=== PATIENT | female | born 1960 | race Caucasian/White ===

== ENCOUNTER 2017-02-20 21:41 | Emergency (ER) | payer OTHER ==
[~2017-02-20 21:41] MED LIST: FISH OIL1000 M1 PO; GABAPENTIN300 MG PO; HYDROXYZINE HCL25 MG PO; LISINOPRIL10 MG PO; MULTIPLE VITAMIN PO; VITAMIN B12100 MCG PO; VITAMIN D PO
--- NOTE | 2017-02-20 23:00 | ED ORDER SUMMARY ---
..... Patient: DALTON DORAN OrderSheet [facility] VisitID: [id number] [address] [place] [address] 56y, F Registration Date/Time: 02/20/2017 ORDER SHEET Weight: 81.6 kg (stated) Allergies: Cyclobenzaprine GENERAL ORDERS: MEDICATION ORDERS: Tylenol PO 650 mg (NOW) (22:48 02/20/2017 Yohannes Weinberg) ([facility] 22:52 Jewelss R.N.) (22:56 Jewelss R.N.) IV FLUIDS: ORDER SHEET NOTES: [Electronically signed by Brisa Lopez P.A.-C (23:10 02/20/2017)] [Electronically signed by Daxa Maldonado R.N. (23:15 02/20/2017)] [Electronically locked/signed by Daxa Maldonado R.N. (23:15 02/20/2017)]
--- NOTE | 2017-02-20 23:00 | ED ORDER SUMMARY ---
..... Patient: DALTON DORAN OrderSheet [facility] VisitID: [id number] [address] [place] [address] 56y, F Registration Date/Time: 02/20/2017 ORDER SHEET Weight: 81.6 kg (stated) Allergies: Cyclobenzaprine GENERAL ORDERS: MEDICATION ORDERS: Tylenol PO 650 mg (NOW) (22:48 02/20/2017 Yohannes Weinberg) ([facility] 22:52 Jewelss R.N.) (22:56 Jewelss R.N.) IV FLUIDS: ORDER SHEET NOTES: [Electronically signed by Brisa Lopez P.A.-C (23:10 02/20/2017)] [Electronically signed by Daxa Maldonado R.N. (23:15 02/20/2017)] [Electronically locked/signed by Daxa Maldonado R.N. (23:15 02/20/2017)]
--- NOTE | 2017-02-20 23:00 | ED CLINICAL REPORT ---
Clinical Report - Physicians/Mid Levels [facility] [address] [place] [address] 02/20/2017 21:42 [facility]: [id number] Time Seen: 23:05 Feb 20 2017. Arrived- By private vehicle. Historian- patient. HISTORY OF PRESENT ILLNESS Chief Complaint: (R. Foot pain x 1 year). The injury happened 1 month, ongoing for 12 month. Patient is experiencing mild pain. Patient denies injury to the head or neck. (Patient has been referred for little tearing right foot pain over the last 12 months, has seen PT, undergoing treatment, pain worsening x 1 month. No trauma. NO rash. Worse with movement.). REVIEW OF SYSTEMS The patient complains of pain on weight bearing. All systems otherwise negative, except as recorded above. PAST HISTORY The patient has not had a prior injury to the same area. SOCIAL HISTORY Never smoker. No alcohol use or drug use. ADDITIONAL NOTES The nursing notes have been reviewed. PHYSICAL EXAM Vital Signs: 02/20/2017 21:48 BP: 150/80. HR: 80. RR: 18. O2 saturation: 95%. Temp: 98.3 F. Pain level now: 10/10. Appearance: Alert. Head: Head atraumatic. Eyes: Pupils equal, round and reactive to light. Eyes normal inspection. No scleral icterus or pale conjunctivae. ENT: Ears normal. Nose normal. Neck: Normal inspection. Neck supple. CVS: Normal heart rate and rhythm. Heart sounds normal. No cardiac murmur or extra heart sounds. Respiratory: No respiratory distress. Breath sounds normal. No chest wall injury. Abdomen: No visible injury. Soft. Bowel sounds normal. No organomegaly. No mass. No abdominal tenderness. The bowel sounds are not abnormal. Skin: Skin intact. Skin warm. Extremities: Base of the right 5th metatarsal. Right foot, plantar aspect. No tenderness or laceration. Right heel. (distal heel tenderness, no swelling, no rash, no abrasion/ no cellulitis.). No ankle injury. Neuro, Vascular and Tendons: Vascular status intact. Motor intact. Gait: No limping gait. Neuro: Oriented X 3. PROGRESS AND PROCEDURES Course of Care: Patient here in the emergency department with with signs of acute on chronic pain, currently receiving physical therapy for such, pain worsens with movement and activity. No signs of underlying abrasion. No signs of cellulitis. No signs of any trauma or injury. Patient with full range of motion. NO signs of Achilles injury. Pt explained in detail that due to chronic concerns, this is something that needs to be managed outpatient, and follow up with podiatry/ pcp. No acute nature of her pain, likely exacerbation of chronic. good distal ns, no signs of abrasion/ erythema. 02/20/2017 21:48 BP: 150/80. HR: 80. RR: 18. O2 saturation: 95%. Temp: 98.3 F. Pain level now: 05/16. Patient is stable. Symptoms better. Patient/family counseled. Disposition: Discharged. Condition: good. CLINICAL IMPRESSION Sprain of the right foot. INSTRUCTIONS Prescription Medications: Hydrocodone/APAP 5mg / 325mg: take 1 orally every 6 hours as needed for pain. Dispense five (5). No refill. OTC Medications: Take OTC medications according to label instructions. Available over the counter. Acetaminophen (available over the counter): take according to label instructions. Motrin (available over the counter): take according to label instructions. Follow-up: Follow up with your doctor in three days. Follow-up with: Thee Robertson DPM, Podiatry, , [facility], [address] [place] [address], [address], [place] [address] Follow up. Call for the next available appointment. (Electronically signed by Brisa Lopez P.A.-C 02/20/2017 23:10)
--- NOTE | 2017-02-20 23:00 | ED CLINICAL REPORT ---
Clinical Report - Physicians/Mid Levels [facility] [address] [place] [address] 02/20/2017 21:42 [id number] Time Seen: 23:05 Feb 20 2017. Arrived- By private vehicle. Historian- patient. HISTORY OF PRESENT ILLNESS Chief Complaint: (R. Foot pain x 1 year). The injury happened 1 month, ongoing for 12 month. Patient is experiencing mild pain. Patient denies injury to the head or neck. (Patient has been referred for little tearing right foot pain over the last 12 months, has seen PT, undergoing treatment, pain worsening x 1 month. No trauma. NO rash. Worse with movement.). REVIEW OF SYSTEMS The patient complains of pain on weight bearing. All systems otherwise negative, except as recorded above. PAST HISTORY The patient has not had a prior injury to the same area. SOCIAL HISTORY Never smoker. No alcohol use or drug use. ADDITIONAL NOTES The nursing notes have been reviewed. PHYSICAL EXAM Vital Signs: 02/20/2017 21:48 BP: 150/80. HR: 80. RR: 18. O2 saturation: 95%. Temp: 98.3 F. Pain level now: 10/10. Appearance: Alert. Head: Head atraumatic. Eyes: Pupils equal, round and reactive to light. Eyes normal inspection. No scleral icterus or pale conjunctivae. ENT: Ears normal. Nose normal. Neck: Normal inspection. Neck supple. CVS: Normal heart rate and rhythm. Heart sounds normal. No cardiac murmur or extra heart sounds. Respiratory: No respiratory distress. Breath sounds normal. No chest wall injury. Abdomen: No visible injury. Soft. Bowel sounds normal. No organomegaly. No mass. No abdominal tenderness. The bowel sounds are not abnormal. Skin: Skin intact. Skin warm. Extremities: Base of the right 5th metatarsal. Right foot, plantar aspect. No tenderness or laceration. Right heel. (distal heel tenderness, no swelling, no rash, no abrasion/ no cellulitis.). No ankle injury. Neuro, Vascular and Tendons: Vascular status intact. Motor intact. Gait: No limping gait. Neuro: Oriented X 3. PROGRESS AND PROCEDURES Course of Care: Patient here in the emergency department with with signs of acute on chronic pain, currently receiving physical therapy for such, pain worsens with movement and activity. No signs of underlying abrasion. No signs of cellulitis. No signs of any trauma or injury. Patient with full range of motion. NO signs of Achilles injury. Pt explained in detail that due to chronic concerns, this is something that needs to be managed outpatient, and follow up with podiatry/ pcp. No acute nature of her pain, likely exacerbation of chronic. good distal ns, no signs of abrasion/ erythema. 02/20/2017 21:48 BP: 150/80. HR: 80. RR: 18. O2 saturation: 95%. Temp: 98.3 F. Pain level now: 05/16. Patient is stable. Symptoms better. Patient/family counseled. Disposition: Discharged. Condition: good. CLINICAL IMPRESSION Sprain of the right foot. INSTRUCTIONS Prescription Medications: Hydrocodone/APAP 5mg / 325mg: take 1 orally every 6 hours as needed for pain. Dispense five (5). No refill. OTC Medications: Take OTC medications according to label instructions. Available over the counter. Acetaminophen (available over the counter): take according to label instructions. Motrin (available over the counter): take according to label instructions. Follow-up: Follow up with your doctor in three days. Follow-up with: Thee Robertson DPM, Podiatry, , [facility], [address] [place] [address], [address], [place] [address] Follow up. Call for the next available appointment. (Electronically signed by Brisa Lopez P.A.-C 02/20/2017 23:10)
--- NOTE | 2017-02-20 23:00 | ED NURSING NOTES ---
Clinical Report - Nurses [facility] [address] [place] [address] 02/20/2017 21:42 Patient: DALTON DORAN TRIAGE Triage time 21:48 Feb 20 2017. Acuity: LEVEL 4. Chief Complaint: RIGHT LOWER EXTREMITY PAIN. Location of symptoms- (sharp pain with activity, usually happens at night). 21:56 02/20/17. SEPSIS SCREEN: Sepsis Screen. Negative (no infection suspected/documented). ARNOLDO COMA SCORE: Arnoldo Coma Scale: 15- eyes open spontaneously (4); best verbal response- oriented x 4 (5); best motor response- obeys commands (6). --21:56 Destinee Dowell 21:48 02/20/17. BP: 150/80 (regular adult cuff) taken on the left arm, while sitting. HR: 80. RR: 18. O2 saturation: 95% on room air. Temp: 98.3 F (oral). Pain level now: 05/16. --21:56 Destinee Dowell. Weight: 81.6 kg stated. Height/Length: 60 inches Per Patient. BMI: 35.1. --21:58 Destinee Dowell. Medications Calcium + D3 Oral, am. Gabapentin Oral 300 mg am and noon, and 600mg at hs . HydrOXYzine HCl Oral 50 mg, at bedtime. Lisinopril 10mg am. --21:52 Destinee Dowell. Allergies Cyclobenzaprine. --21:53 Destinee Dowell. History Arrived by private vehicle. Historian: patient. Primary physician (Dr Cobian). No injury occurred. This occurred (pain has been over a year but pain has increased in a month). ( Patient has not had an injury, she has had xrays over a year ago she says and she has had PT for this). 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 PAST MEDICAL HX: Immunizations: up-to-date. SOCIAL HX: Never smoker. No alcohol use or drug use. No infectious disease exposure. ABUSE ASSESSMENT: No report of abuse. SELF HARM ASSESSMENT: A self harm assessment was performed. The patient answered "no" to the question "Do you have thoughts of harming or killing yourself?" and "Have you recently had thoughts about harming or killing others?". --21:56 Destinee Dowell. PROBLEMS: Atypical Chest Pain. Costochondritis. Herpes Zoster. Herpes Labialis. Hypertension. Cholesterol problems. --21:53 Destinee Dowell. ADDITIONAL SURGERIES: Ganglion cyst . Tonsillectomy. Warts. --21:53 Destinee Dowell. Interventions ID band on patient. To treatment room. --21:56 Destinee Dowell. PHYSICAL ASSESSMENT 21:58 02/20/17. Ambulatory to room. GENERAL / NEURO / PSYCH: Oriented X 4. Alert. Appears in no acute distress. EXTREMITIES: Extremity pulses are within normal limits. Extremities exhibit normal ROM. Neuro-vascular status intact to the extremity. No lower extremity edema. Normal gait. Right medial ankle. Right heel. SKIN: Skin intact. Skin is warm and dry. --21:58 Destinee Dowell. NURSING PROGRESS NOTES 21:58 02/20/17. The plan of care for this patient has been created. Cold pack applied. Extremity elevated. Reassurance given. Two patient identifiers checked. Call light placed in reach. Side rails up x 1. Bed placed in lowest position. Brakes of bed on. Patient ready for evaluation- chart flagged and ED physician notified. --21:58 Destinee Dowell 22:56 02/20/2017 Tylenol (Acetaminophen) PO Tablets 650 mg given. Allergies verified and confirmed 5 rights. --22:56 Cristina Olivier R.N. DISPOSITION / DISCHARGE Condition at departure: stable. No learning barriers present. Discharge instructions provided and reviewed with the patient. Reviewed medication(s) side effects, precautions, dosing and course information. Prescription(s) given to the patient. Follow up contact number. Patient verbalized understanding. Written instructions provided in Sri [place]ankan. The patient was discharged home. She left the Emergency Department ambulatory and via private vehicle. --23:15 Daxa Maldonado R.N. 23:14 02/20/17. BP: 158/86. HR: 71. RR: 16. O2 saturation: 99% on room air. Temp: deferred. Phelps-Mendoza pain scale: 4/10. --23:15 Daxa Maldonado R.N. Locked/Released at 02/20/2017 23:15 by Daxa Maldonado R.N.
--- NOTE | 2017-02-20 23:00 | ED NURSING NOTES ---
Clinical Report - Nurses [facility] [address] [place] [address] 02/20/2017 21:42 Patient: DALTON DORAN TRIAGE Triage time 21:48 Feb 20 2017. Acuity: LEVEL 4. Chief Complaint: RIGHT LOWER EXTREMITY PAIN. Location of symptoms- (sharp pain with activity, usually happens at night). 21:56 02/20/17. SEPSIS SCREEN: Sepsis Screen. Negative (no infection suspected/documented). ARNOLDO COMA SCORE: Arnoldo Coma Scale: 15- eyes open spontaneously (4); best verbal response- oriented x 4 (5); best motor response- obeys commands (6). --21:56 Destinee Dowell 21:48 02/20/17. BP: 150/80 (regular adult cuff) taken on the left arm, while sitting. HR: 80. RR: 18. O2 saturation: 95% on room air. Temp: 98.3 F (oral). Pain level now: 05/16. --21:56 Destinee Dowell. Weight: 81.6 kg stated. Height/Length: 60 inches Per Patient. BMI: 35.1. --21:58 Destinee Dowell. Medications Calcium + D3 Oral, am. Gabapentin Oral 300 mg am and noon, and 600mg at hs . HydrOXYzine HCl Oral 50 mg, at bedtime. Lisinopril 10mg am. --21:52 Destinee Dowell. Allergies Cyclobenzaprine. --21:53 Destinee Dowell. History Arrived by private vehicle. Historian: patient. Primary physician (Dr Cobian). No injury occurred. This occurred (pain has been over a year but pain has increased in a month). ( Patient has not had an injury, she has had xrays over a year ago she says and she has had PT for this). 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 PAST MEDICAL HX: Immunizations: up-to-date. SOCIAL HX: Never smoker. No alcohol use or drug use. No infectious disease exposure. ABUSE ASSESSMENT: No report of abuse. SELF HARM ASSESSMENT: A self harm assessment was performed. The patient answered "no" to the question "Do you have thoughts of harming or killing yourself?" and "Have you recently had thoughts about harming or killing others?". --21:56 Destinee Dowell. PROBLEMS: Atypical Chest Pain. Costochondritis. Herpes Zoster. Herpes Labialis. Hypertension. Cholesterol problems. --21:53 Destinee Dowell. ADDITIONAL SURGERIES: Ganglion cyst . Tonsillectomy. Warts. --21:53 Destinee Dowell. Interventions ID band on patient. To treatment room. --21:56 Destinee Dowell. PHYSICAL ASSESSMENT 21:58 02/20/17. Ambulatory to room. GENERAL / NEURO / PSYCH: Oriented X 4. Alert. Appears in no acute distress. EXTREMITIES: Extremity pulses are within normal limits. Extremities exhibit normal ROM. Neuro-vascular status intact to the extremity. No lower extremity edema. Normal gait. Right medial ankle. Right heel. SKIN: Skin intact. Skin is warm and dry. --21:58 Destinee Dowell. NURSING PROGRESS NOTES 21:58 02/20/17. The plan of care for this patient has been created. Cold pack applied. Extremity elevated. Reassurance given. Two patient identifiers checked. Call light placed in reach. Side rails up x 1. Bed placed in lowest position. Brakes of bed on. Patient ready for evaluation- chart flagged and ED physician notified. --21:58 Destinee Dowell 22:56 02/20/2017 Tylenol (Acetaminophen) PO Tablets 650 mg given. Allergies verified and confirmed 5 rights. --22:56 Cristina Olivier R.N. DISPOSITION / DISCHARGE Condition at departure: stable. No learning barriers present. Discharge instructions provided and reviewed with the patient. Reviewed medication(s) side effects, precautions, dosing and course information. Prescription(s) given to the patient. Follow up contact number. Patient verbalized understanding. Written instructions provided in Bur[place]ian. The patient was discharged home. She left the Emergency Department ambulatory and via private vehicle. --23:15 Daax Maldonado R.N. 23:14 02/20/17. BP: 158/86. HR: 71. RR: 16. O2 saturation: 99% on room air. Temp: deferred. Phelps-Mendoza pain scale: 4/10. --23:15 Daxa Maldonado R.N. Locked/Released at 02/20/2017 23:15 by Daxa Maldonado R.N.
--- NOTE | 2017-02-20 23:16 | ED MAR SUMMARY ---
..... Medication Administration Record [facility] [address] [place] [address] Patient: DALTON DORAN Visit ID: [id number] 56y, F Weight: 81.6 kg Height/Length: 60 in BMI: 35.1 ALLERGIES: Cyclobenzaprine Given 22:56 02/20/2017 Cristina Olivier R.N. Medication Administered: TYLENOL [PO] (ACETAMINOPHEN), Dose: 650 mg Tablets PO. Medication Ordered: Tylenol PO 650 mg (NOW).
--- NOTE | 2017-02-20 23:16 | ED DISCHARGE INSTRUCTIONS ---
Patient: DALTON DORAN General Instructions Located Within [facility] VisitID: [id number] [address] [place] [address] 56y, F Registration Date/Time: 02/20/2017 Sprain of the right foot. INSTRUCTIONS Prescription Medications: Hydrocodone/APAP 5mg / 325mg: take 1 orally every 6 hours as needed for pain. Dispense five (5). No refill. OTC Medications: Take OTC medications according to label instructions. Available over the counter. Acetaminophen (available over the counter): take according to label instructions. Motrin (available over the counter): take according to label instructions. Follow-up: Follow up with your doctor in three days. Follow-up with: Thee Robertson DPM, Podiatry, , [facility], [address] [place] [address], [address] [address] Follow up. Call for the next available appointment. ADDITIONAL INFORMATION Sprain, Foot A sprain is a stretching or tearing of the ligaments that hold a joint together. There are no broken bones. Sprains take from 36 weeks to heal. A sprain may be treated with a splint, walking cast or special boot. Mild sprains may not require any additional support. Home care The following guidelines will help you care for your injury at home: Keep your leg elevated when sitting or lying down. This is very important during the first 48 hours to reduce swelling. Stay off the injured foot as much as possible until you can walk on it without pain. If needed, you may use crutches during the first week for this purpose. (Crutches can be rented at many pharmacies or surgical/orthopedic supply stores). You may be given a cast shoe to wear to prevent movement in your foot. If not, you can use a sandal or any shoe that does not put pressure on the injured area until the swelling and pain go away. If using a sandal, be careful not to strike your foot against anything, since another injury could make the sprain worse. Apply an ice pack (ice cubes in a plastic bag, wrapped in a towel) over the injured area for 20 minutes every 12 hours the first day. You should continue with ice packs 34 times a day for the next two days. Continue the use of ice packs for relief of pain and swelling as needed. You may use acetaminophen or ibuprofen to control pain, unless another medicine was prescribed. If you have chronic liver or kidney disease or ever had a stomach ulcer or GI bleeding, talk with your doctor before using these medicines. If you were given a splint or cast, keep it dry. Bathe with your splint/cast well out of the water, protected with a large plastic bag, rubber-banded at the top end. If a fiberglass splint or cast gets wet, you can dry it with a hair-dryer. You may return to sports after healing, when you can run without pain. Follow-up care Follow up with your doctor as directed. Any X-rays you had today dont show any broken bones, breaks, or fractures. Sometimes fractures dont show up on the first X-ray. Bruises and sprains can sometimes hurt as much as a fracture. These injuries can take time to heal completely. If your symptoms dont improve or they get worse, talk with your doctor. You may need a repeat X-ray. When to seek medical care Get prompt medical attention if any of the following occur: The plaster cast or splint gets wet or soft The fiberglass cast or splint gets wet and does not dry for 24 hours Pain or swelling increases, or redness appears Toes become cold, blue, numb, or tingly Hydrocodone Bitartrate, Acetaminophen Oral tablet What is this medicine? ACETAMINOPHEN; HYDROCODONE (a set a EULALIO lauren fen; alex droe KOE done) is a pain reliever. It is used to treat mild to moderate pain. How should I use this medicine? Take this medicine by mouth. Swallow it with a full glass of water. Follow the directions on the prescription label. If the medicine upsets your stomach, take the medicine with food or milk. Do not take more than you are told to take. Talk to your general practitioner regarding the use of this medicine in children. This medicine is not approved for use in children. What side effects may I notice from receiving this medicine? Side effects that you should report to your doctor or health primary care md as soon as possible: allergic reactions like skin rash, itching or hives, swelling of the face, lips, or tongue breathing problems confusion feeling faint or lightheaded, falls stomach pain yellowing of the eyes or skin Side effects that usually do not require medical attention (report to your doctor or health primary care md if they continue or are bothersome): nausea, vomiting stomach upset What may interact with this medicine? alcohol antihistamines isoniazid medicines for depression, anxiety, or psychotic disturbances medicines for sleep muscle relaxants naltrexone narcotic medicines (opiates) for pain phenobarbital ritonavir tramadol What if I miss a dose? If you miss a dose, take it as soon as you can. If it is almost time for your next dose, take only that dose. Do not take double or extra doses. Where should I keep my medicine? Keep out of the reach of children. This medicine can be abused. Keep your medicine in a safe place to protect it from theft. Do not share this medicine with anyone. Selling or giving away this medicine is dangerous and against the law. Store at room temperature between 15 and 30 degrees C (59 and 86 degrees F). Protect from light. Keep container tightly closed. Throw away any unused medicine after the expiration date. Discard unused medicine and used packaging carefully. Pets and children can be harmed if they find used or lost packages. What should I tell my health care provider before I take this medicine? They need to know if you have any of these conditions: brain tumor Crohn's disease, inflammatory bowel disease, or ulcerative colitis drink more than 3 alcohol-containing drinks per day drug abuse or addiction head injury heart or circulation problems kidney disease or problems going to the bathroom liver disease lung disease, asthma, or breathing problems an unusual or allergic reaction to acetaminophen, hydrocodone, other opioid analgesics, other medicines, foods, dyes, or preservatives or trying to get breast-feeding What should I watch for while using this medicine? Tell your doctor or health primary care md if your pain does not go away, if it gets worse, or if you have new or a different type of pain. You may develop tolerance to the medicine. Tolerance means that you will need a higher dose of the medicine for pain relief. Tolerance is normal and is expected if you take the medicine for a long time. Do not suddenly stop taking your medicine because you may develop a severe reaction. Your body becomes used to the medicine. This does NOT mean you are addicted. Addiction is a behavior related to getting and using a drug for a non-medical reason. If you have pain, you have a medical reason to take pain medicine. Your doctor will tell you how much medicine to take. If your doctor wants you to stop the medicine, the dose will be slowly lowered over time to avoid any side effects. You may get drowsy or dizzy when you first start taking the medicine or change doses. Do not drive, use machinery, or do anything that may be dangerous until you know how the medicine affects you. Stand or sit up slowly. There are different types of narcotic medicines (opiates) for pain. If you take more than one type at the same time, you may have more side effects. Give your health care provider a list of all medicines you use. Your doctor will tell you how much medicine to take. Do not take more medicine than directed. Call emergency for help if you have problems breathing. The medicine will cause constipation. Try to have a bowel movement at least every 2 to 3 days. If you do not have a bowel movement for 3 days, call your doctor or health primary care md. Too much acetaminophen can be very dangerous. Do not take Tylenol (acetaminophen) or medicines that contain acetaminophen with this medicine. Many non-prescription medicines contain acetaminophen. Always read the labels carefully. You have been given the following additional information: Sprain, Foot Hydrocodone Bitartrate, Acetaminophen Oral tablet (Electronically signed by Brisa Lopez P.A.-C 02/20/2017 23:10)
--- NOTE | 2017-02-20 23:16 | ED MAR SUMMARY ---
..... Medication Administration Record [facility] [address] [place] [address] Patient: DALTON DORAN Visit ID: [id number] 56y, F Weight: 81.6 kg Height/Length: 60 in BMI: 35.1 ALLERGIES: Cyclobenzaprine Given 22:56 02/20/2017 Cristina Olivier R.N. Medication Administered: TYLENOL [PO] (ACETAMINOPHEN), Dose: 650 mg Tablets PO. Medication Ordered: Tylenol PO 650 mg (NOW).
--- NOTE | 2017-02-20 23:16 | ED DISCHARGE INSTRUCTIONS ---
Patient: DALTON DORAN General Instructions [facility] VisitID: [id number] [address] [place] [address] 56y, F Registration Date/Time: 02/20/2017 Sprain of the right foot. INSTRUCTIONS Prescription Medications: Hydrocodone/APAP 5mg / 325mg: take 1 orally every 6 hours as needed for pain. Dispense five (5). No refill. OTC Medications: Take OTC medications according to label instructions. Available over the counter. Acetaminophen (available over the counter): take according to label instructions. Motrin (available over the counter): take according to label instructions. Follow-up: Follow up with your doctor in three days. Follow-up with: Thee Robertson DPM, Podiatry, , [facility], [address] [place] [address], [address] [address] Follow up. Call for the next available appointment. ADDITIONAL INFORMATION Sprain, Foot A sprain is a stretching or tearing of the ligaments that hold a joint together. There are no broken bones. Sprains take from 36 weeks to heal. A sprain may be treated with a splint, walking cast or special boot. Mild sprains may not require any additional support. Home care The following guidelines will help you care for your injury at home: Keep your leg elevated when sitting or lying down. This is very important during the first 48 hours to reduce swelling. Stay off the injured foot as much as possible until you can walk on it without pain. If needed, you may use crutches during the first week for this purpose. (Crutches can be rented at many pharmacies or surgical/orthopedic supply stores). You may be given a cast shoe to wear to prevent movement in your foot. If not, you can use a sandal or any shoe that does not put pressure on the injured area until the swelling and pain go away. If using a sandal, be careful not to strike your foot against anything, since another injury could make the sprain worse. Apply an ice pack (ice cubes in a plastic bag, wrapped in a towel) over the injured area for 20 minutes every 12 hours the first day. You should continue with ice packs 34 times a day for the next two days. Continue the use of ice packs for relief of pain and swelling as needed. You may use acetaminophen or ibuprofen to control pain, unless another medicine was prescribed. If you have chronic liver or kidney disease or ever had a stomach ulcer or GI bleeding, talk with your doctor before using these medicines. If you were given a splint or cast, keep it dry. Bathe with your splint/cast well out of the water, protected with a large plastic bag, rubber-banded at the top end. If a fiberglass splint or cast gets wet, you can dry it with a hair-dryer. You may return to sports after healing, when you can run without pain. Follow-up care Follow up with your doctor as directed. Any X-rays you had today dont show any broken bones, breaks, or fractures. Sometimes fractures dont show up on the first X-ray. Bruises and sprains can sometimes hurt as much as a fracture. These injuries can take time to heal completely. If your symptoms dont improve or they get worse, talk with your doctor. You may need a repeat X-ray. When to seek medical care Get prompt medical attention if any of the following occur: The plaster cast or splint gets wet or soft The fiberglass cast or splint gets wet and does not dry for 24 hours Pain or swelling increases, or redness appears Toes become cold, blue, numb, or tingly Hydrocodone Bitartrate, Acetaminophen Oral tablet What is this medicine? ACETAMINOPHEN; HYDROCODONE (a set a EULALIO lauren fen; alex droe KOE done) is a pain reliever. It is used to treat mild to moderate pain. How should I use this medicine? Take this medicine by mouth. Swallow it with a full glass of water. Follow the directions on the prescription label. If the medicine upsets your stomach, take the medicine with food or milk. Do not take more than you are told to take. Talk to your geospatial technologist regarding the use of this medicine in children. This medicine is not approved for use in children. What side effects may I notice from receiving this medicine? Side effects that you should report to your doctor or health hospice home care coordinator as soon as possible: allergic reactions like skin rash, itching or hives, swelling of the face, lips, or tongue breathing problems confusion feeling faint or lightheaded, falls stomach pain yellowing of the eyes or skin Side effects that usually do not require medical attention (report to your doctor or health hospice home care coordinator if they continue or are bothersome): nausea, vomiting stomach upset What may interact with this medicine? alcohol antihistamines isoniazid medicines for depression, anxiety, or psychotic disturbances medicines for sleep muscle relaxants naltrexone narcotic medicines (opiates) for pain phenobarbital ritonavir tramadol What if I miss a dose? If you miss a dose, take it as soon as you can. If it is almost time for your next dose, take only that dose. Do not take double or extra doses. Where should I keep my medicine? Keep out of the reach of children. This medicine can be abused. Keep your medicine in a safe place to protect it from theft. Do not share this medicine with anyone. Selling or giving away this medicine is dangerous and against the law. Store at room temperature between 15 and 30 degrees C (59 and 86 degrees F). Protect from light. Keep container tightly closed. Throw away any unused medicine after the expiration date. Discard unused medicine and used packaging carefully. Pets and children can be harmed if they find used or lost packages. What should I tell my health care provider before I take this medicine? They need to know if you have any of these conditions: brain tumor Crohn's disease, inflammatory bowel disease, or ulcerative colitis drink more than 3 alcohol-containing drinks per day drug abuse or addiction head injury heart or circulation problems kidney disease or problems going to the bathroom liver disease lung disease, asthma, or breathing problems an unusual or allergic reaction to acetaminophen, hydrocodone, other opioid analgesics, other medicines, foods, dyes, or preservatives or trying to get breast-feeding What should I watch for while using this medicine? Tell your doctor or health hospice home care coordinator if your pain does not go away, if it gets worse, or if you have new or a different type of pain. You may develop tolerance to the medicine. Tolerance means that you will need a higher dose of the medicine for pain relief. Tolerance is normal and is expected if you take the medicine for a long time. Do not suddenly stop taking your medicine because you may develop a severe reaction. Your body becomes used to the medicine. This does NOT mean you are addicted. Addiction is a behavior related to getting and using a drug for a non-medical reason. If you have pain, you have a medical reason to take pain medicine. Your doctor will tell you how much medicine to take. If your doctor wants you to stop the medicine, the dose will be slowly lowered over time to avoid any side effects. You may get drowsy or dizzy when you first start taking the medicine or change doses. Do not drive, use machinery, or do anything that may be dangerous until you know how the medicine affects you. Stand or sit up slowly. There are different types of narcotic medicines (opiates) for pain. If you take more than one type at the same time, you may have more side effects. Give your health care provider a list of all medicines you use. Your doctor will tell you how much medicine to take. Do not take more medicine than directed. Call emergency for help if you have problems breathing. The medicine will cause constipation. Try to have a bowel movement at least every 2 to 3 days. If you do not have a bowel movement for 3 days, call your doctor or health hospice home care coordinator. Too much acetaminophen can be very dangerous. Do not take Tylenol (acetaminophen) or medicines that contain acetaminophen with this medicine. Many non-prescription medicines contain acetaminophen. Always read the labels carefully. You have been given the following additional information: Sprain, Foot Hydrocodone Bitartrate, Acetaminophen Oral tablet (Electronically signed by Brisa Lopez P.A.-C 02/20/2017 23:10)
--- NOTE | 2017-02-20 23:16 | ED MED RECONCILIATION SUMMARY ---
Patient: DALTON DORAN Medication Reconciliation Report [facility] VisitID: [id number] [address] [place] [address] 56y, F Registration Date/Time: 02/20/2017 Weight: 81.6 kg Height/Length: 60 in. BMI: 35.1 ALLERGIES: Cyclobenzaprine The patient's Home Medications are listed below: THE FOLLOWING MEDICATIONS NEED TO BE RECONCILED: Calcium + D3 Oral, am Gabapentin Oral 300 mg am and noon, and 600mg at hs HydrOXYzine HCl Oral 50 mg, at bedtime Lisinopril 10mg am The source(s) of the original Home Medication information: Not obtained. The following Medications were given to the patient in the Emergency Department: Tylenol [PO] PO 650 mg, administered: 02/20/2017 10:56:00 PM The following Medications were prescribed to the patient: Take OTC medications according to label instructions. Available over the counter. -- Brisa Lopez, P.A.-C Acetaminophen (available over the counter): take according to label instructions. -- Brisa Lopez, P.A.-C Motrin (available over the counter): take according to label instructions. -- Brisa Lopez, P.A.-C Hydrocodone/APAP 5mg / 325mg: take 1 orally every 6 hours as needed for pain. Dispense five (5). No refill. -- Brisa Lopez, P.A.-C
--- NOTE | 2017-02-20 23:16 | ED MED RECONCILIATION SUMMARY ---
Patient: DALTON DORAN Medication Reconciliation Report [facility] VisitID: [id number] [address] [place] [address] 56y, F Registration Date/Time: 02/20/2017 Weight: 81.6 kg Height/Length: 60 in. BMI: 35.1 ALLERGIES: Cyclobenzaprine The patient's Home Medications are listed below: THE FOLLOWING MEDICATIONS NEED TO BE RECONCILED: Calcium + D3 Oral, am Gabapentin Oral 300 mg am and noon, and 600mg at hs HydrOXYzine HCl Oral 50 mg, at bedtime Lisinopril 10mg am The source(s) of the original Home Medication information: Not obtained. The following Medications were given to the patient in the Emergency Department: Tylenol [PO] PO 650 mg, administered: 02/20/2017 10:56:00 PM The following Medications were prescribed to the patient: Take OTC medications according to label instructions. Available over the counter. -- Brisa Lopez, P.A.-C Acetaminophen (available over the counter): take according to label instructions. -- Brisa Lopez, P.A.-C Motrin (available over the counter): take according to label instructions. -- Brisa Lopez, P.A.-C Hydrocodone/APAP 5mg / 325mg: take 1 orally every 6 hours as needed for pain. Dispense five (5). No refill. -- Brisa Lopez, P.A.-C
== END 2017-02-20 23:13 | disposition home or self-care (01) ==
LOC: ED SRH 21:41
DX: S93.601A Unspecified sprain of right foot, initial encounter (principal); X58.XXXA Exposure to other specified factors, initial encounter; Y93.9 Activity, unspecified; Y92.9 Unspecified place or not applicable; Y99.9 Unspecified external cause status; I10 Essential (primary) hypertension; Z79.899 Other long term (current) drug therapy